=== PATIENT | female | born 1980 | race Caucasian/White ===

== ENCOUNTER → 2017-07-07 | Outpatient (CLI) | payer OTHER | LOC: M CLY 09:51 | DX: M54.2 Cervicalgia (principal); M54.5 Low back pain; M54.6 Pain in thoracic spine | CPT/HCPCS: 72050 ==

== ENCOUNTER → 2017-11-15 | Outpatient (CLI) | payer OTHER | LOC: M RAD 15:40 | DX: G43.709 Chronic migraine without aura, not intractable, without status migrainosus (principal) | CPT/HCPCS: 70551 ==

== ENCOUNTER → 2020-01-26 | Emergency (ER) | payer OTHER ==
[~2020-01-26] MED LIST: DOXY100T27 PO; GABA-1171 PO; IBUP80TA PO; PROP60TA14 PO; SUMA100T2 PO
== END | disposition left against medical advice (07) ==
LOC: M ED 23:00
DX: Z53.21 Procedure and treatment not carried out due to patient leaving prior to being seen by health care provider (principal)

== ENCOUNTER → 2023-05-27 | Day surgery (SDC) | payer OTHER ==
[~2023-05-27] VITALS: Ht 157.5 cm; Wt 63.5 kg
[~2023-05-27] MED LIST changes: +CLINDAMYCIN 900 MG in IV 1 EA IV ONE; +IBUP-1022 PO
== END | disposition home or self-care (01) ==
LOC: M SDC 08:31
PROVIDERS: ATTEND Dentist
DX: K02.9 Dental caries, unspecified (principal); Z53.8 Procedure and treatment not carried out for other reasons

== ENCOUNTER → 2023-12-18 | Outpatient (CLI) | payer OTHER ==
[~2023-12-18] MED LIST changes: -CLINDAMYCIN 900 MG in IV 1 EA IV ONE
== END ==
LOC: M PLAIMG 07:14
PROVIDERS: ATTEND Orthopaedic Surgery Hand Surgery
DX: M25.512 Pain in left shoulder (principal); M75.02 Adhesive capsulitis of left shoulder; S46.812A Strain of other muscles, fascia and tendons at shoulder and upper arm level, left arm, initial encounter; X58.XXXA Exposure to other specified factors, initial encounter; Y92.9 Unspecified place or not applicable; Y93.9 Activity, unspecified; Y99.9 Unspecified external cause status